=== PATIENT | female | born 1990 | race Caucasian/White ===

== ENCOUNTER → 2017-08-15 | Outpatient (CLI) | payer OTHER ==
[2017-08-15 11:59] LABS: BASO % 0.4 % (0.0-1.0); EOS # 0.2 10^3/uL (0.0-0.50); EOS % 3.1 % (0.0-3.0); HEMATOCRIT 41.9 % (36.0-47.0); HEMOGLOBIN 13.6 g/dl (12.0-16.0); IMMATURE GRANULOCYTE % 0.3 % (0-3.0); LYMPH # 1.8 10^3/uL (1.5-6.5); LYMPH % 23.5 % (24.0-44.0); MEAN CORPUSCULAR HEMOGLOBIN 28.5 pg (27.0-33.0); MEAN CORPUSCULAR HGB CONC 32.5 g/dl (32.0-36.5); MEAN CORPUSCULAR VOLUME 87.7 fl (80.0-96.0); MONO # 0.5 10^3/uL (0.0-0.8); MONO % 6.4 % (0.0-5.0); NEUTROPHILS # 5.1 10^3/uL (1.8-7.7); NEUTROPHILS % 66.3 % (36.0-66.0); PLATELET COUNT, AUTOMATED 351 10^3/uL (150-450); RED BLOOD COUNT 4.78 10^6/uL (4.00-5.40); RED CELL DISTRIBUTION WIDTH 13.2 % (11.5-14.5); WHITE BLOOD COUNT 7.7 10^3/uL (4.0-10.0)
[2017-08-15 12:20] LABS: ESTIMATED AVERAGE GLUCOSE 111 MG/DL (60-110); HEMOGLOBIN A1c 5.5 %
[2017-08-15 12:22] LABS: ALBUMIN 3.9 GM/DL (3.2-5.2); ALBUMIN/GLOBULIN RATIO 1.05 (1.00-1.93); ALKALINE PHOSPHATASE 64 U/L (45-117); ALT/SGPT 20 U/L (12-78); ANION GAP 8 MEQ/L (8-16); AST/SGOT 19 U/L (7-37); BILIRUBIN,TOTAL 0.3 MG/DL (0.2-1.0); BLOOD UREA NITROGEN 8 MG/DL (7-18); CALCIUM LEVEL 9.1 MG/DL (8.5-10.1); CARBON DIOXIDE LEVEL 27 MEQ/L (21-32); CHLORIDE LEVEL 106 MEQ/L (98-107); CHOLESTEROL LEVEL 166 MG/DL (<200); CHOLESTEROL RISK RATIO 2.813 (<5); CREATININE FOR GFR 0.65 MG/DL (0.55-1.30); FREE T4 1.09 NG/DL (0.76-1.46); GLOMERULAR FILTRATION RATE > 60.0 (>60); GLUCOSE, FASTING 83 MG/DL (70-100); HDL CHOLESTEROL 59 MG/DL (>40); NON-HDL-C 107 MG/DL; POTASSIUM SERUM 4.3 MEQ/L (3.5-5.1); SODIUM LEVEL 141 MEQ/L (136-145); TOTAL PROTEIN 7.6 GM/DL (6.4-8.2); TRIGLYCERIDES LEVEL 55 MG/DL (<150)
[2017-08-15 12:44] LABS: TOTAL 25(OH) VITAMIN D 22.7 NG/ML (30.0-100.0)
== END ==
LOC: M WUC 09:14
DX: E03.9 Hypothyroidism, unspecified (principal); E55.9 Vitamin D deficiency, unspecified; F32.9 Major depressive disorder, single episode, unspecified; Z79.899 Other long term (current) drug therapy
CPT/HCPCS: 84443

== ENCOUNTER 2020-10-28 12:00 | Outpatient (RCR) | payer OTHER | END 2020-11-02 | LOC: M OT 12:00 | PROVIDERS: ATTEND Orthopaedic Surgery | DX: M25.531 Pain in right wrist (principal); M25.532 Pain in left wrist ==

== ENCOUNTER 2020-11-19 14:21 | Outpatient (RCR) | payer OTHER ==
[2020-11-30] MEDS ORDERED: TRAZ-257 PO (20:43)
[2020-11-30] MEDS ORDERED: ESCI5SOL3 PO (20:43)
[2020-11-30] MEDS ORDERED: BUPR-69 PO (20:43)
[2020-11-30] MEDS ORDERED: HYDR-3363 PO (20:44)
== END 2020-12-02 ==
LOC: M OT 14:21
PROVIDERS: ATTEND Orthopaedic Surgery
DX: M25.531 Pain in right wrist (principal); M25.532 Pain in left wrist

== ENCOUNTER 2020-11-30 20:32 | Emergency (ER) | payer OTHER ==
[~2020-11-30] VITALS: Ht 154.9 cm; Wt 84.5 kg
[2020-11-30] MEDS ORDERED: TRAZ-257 PO (20:43)
[2020-11-30] MEDS ORDERED: BUPR-69 PO (20:43)
[2020-11-30] MEDS ORDERED: ESCI5SOL3 PO (20:43)
[2020-11-30] MEDS ORDERED: HYDR-3363 PO (20:44)
[2020-11-30] MEDS ORDERED: LIDOCAINE 4% CREAM 5GM (LMX4) TOP ONE (23:55)
[2020-11-30 23:59] VITALS: BP 133/84
--- NOTE | 2020-11-30 23:59 | REPVR ---
PROCEDURE INFORMATION: Exam: US Duplex Left Lower Extremity Veins, Limited Exam date and time: 11/30/2020 11:18 PM Age: 30 years old Clinical indication: Injury or trauma; Fall; Blunt trauma (contusions or hematomas); Left; Lower extremity, lower leg level; Other superficial vein; Injury date: 11/29/20; Additional info: R/O clot TECHNIQUE: Imaging protocol: Real-time Duplex ultrasound of the Left Lower Extremity with 2-D travis scale, color Doppler flow and spectral waveform analysis with image documentation. Limited exam focused on the left lower extremity veins. COMPARISON: No relevant prior studies available. FINDINGS: Left deep veins: Unremarkable. The common femoral, femoral, popliteal, posterior tibial and peroneal veins are patent without thrombus. Normal compressibility, augmentation response and Doppler waveforms. Left superficial veins: Subcutaneous varices in the calf.. Saphenofemoral junction is patent without thrombus. Soft tissues: Unremarkable. IMPRESSION: No sonographic evidence of deep vein thrombosis. Electronically signed by: Bran Can On 11/30/2020 23:58:09 PM
== END 2020-12-01 00:47 | disposition home or self-care (01) ==
LOC: M ED 20:32
DX: S80.12XA Contusion of left lower leg, initial encounter (principal); W01.0XXA Fall on same level from slipping, tripping and stumbling without subsequent striking against object, initial encounter; Y92.9 Unspecified place or not applicable; Y93.9 Activity, unspecified; Y99.9 Unspecified external cause status; Z88.8 Allergy status to other drugs, medicaments and biological substances

== ENCOUNTER → 2021-03-26 | Outpatient (REF) | payer OTHER ==
[~2021-03-26] MED LIST: BUPR-69 PO; ESCI5SOL3 PO; HYDR-3363 PO; TRAZ-257 PO
== END ==
LOC: M SFHCWAGY 13:18
PROVIDERS: ATTEND Advanced Practice Midwife
DX: Z12.4 Encounter for screening for malignant neoplasm of cervix (principal)

== ENCOUNTER 2021-11-24 23:14 | Emergency (ER) | payer OTHER ==
[~2021-11-24] VITALS: Ht 154.9 cm; Wt 73.4 kg
[2021-11-24 23:15] VITALS: BP 168/87
[2021-11-25] MEDS ORDERED: PHEN15CA6 (00:08)
[2021-11-25] MEDS ORDERED: ESCI5SOL3 (00:08)
[2021-11-25] MEDS ORDERED: BUSP1TAB PO (00:08)
[2021-11-25] MEDS ORDERED: BUPR-71 PO (00:08)
[2021-11-25] MEDS ORDERED: EUTH50TA PO (00:08)
[2021-11-25 00:48] LABS: HEMOGLOBIN 13.7 g/dl (12.0-15.5); MEAN CORPUSCULAR HEMOGLOBIN 29.5 pg (27.0-33.0); MEAN CORPUSCULAR HGB CONC 33.4 g/dl (32.0-36.5); MEAN CORPUSCULAR VOLUME 88.2 fl (80.0-96.0); PLATELET COUNT, AUTOMATED 283 10^3/uL (150-450); RED BLOOD COUNT 4.65 10^6/uL (4.00-5.40); WHITE BLOOD COUNT 9.3 10^3/uL (4.0-10.0)
[2021-11-25] MEDS ORDERED: ONDANSETRON 4MG ORAL DISINTEGRATING TAB PO ONE (00:55)
[2021-11-25] MEDS ORDERED: hydrOXYzine 50 MG TAB PO ONE (00:55)
[2021-11-25 00:56] LABS: HCG, SERUM QUALITATIVE NEGATIVE (NEGATIVE)
[2021-11-25 01:05] LABS: ALBUMIN 4.2 GM/DL (3.2-5.2); ALT/SGPT 20 U/L (12-78); BILIRUBIN,DIRECT 0.2 MG/DL (0.0-0.2); BILIRUBIN,TOTAL 0.3 MG/DL (0.2-1.0); BLOOD UREA NITROGEN 3 MG/DL (7-18); CALCIUM LEVEL 8.9 MG/DL (8.5-10.1); CARBON DIOXIDE LEVEL 21 MEQ/L (21-32); CHLORIDE LEVEL 105 MEQ/L (98-107); ETHYL ALCOHOL (ETHANOL) 0.003 % (0.000-0.010); GLOMERULAR FILTRATION RATE > 60.0 (>60); GLUCOSE, FASTING 99 MG/DL (70-100); POTASSIUM SERUM 3.6 MEQ/L (3.5-5.1); SALICYLATE LEVEL < 1.7 MG/DL (5.0-30.0); SODIUM LEVEL 137 MEQ/L (136-145); TOTAL PROTEIN 7.6 GM/DL (6.4-8.2)
[2021-11-25 01:15] LABS: AMPHETAMINES LEVEL URINE POSITIVE (NEGATIVE); BARBITURATES URINE NEGATIVE (NEGATIVE); BENZODIAZEPINES URINE NEGATIVE (NEGATIVE); CANNABINOIDS URINE POSITIVE (NEGATIVE); COCAINE METABOLITE URINE NEGATIVE (NEGATIVE); METHADONE URINE NEGATIVE (NEGATIVE); OPIATES URINE NEGATIVE (NEGATIVE); PHENCYCLIDINE URINE NEGATIVE (NEGATIVE)
[2021-11-26] MEDS ORDERED: LEXA1TAB2 PO (21:28)
== END 2021-11-25 02:09 | disposition left against medical advice (07) ==
LOC: M ED 23:14
DX: Z53.21 Procedure and treatment not carried out due to patient leaving prior to being seen by health care provider (principal)

== ENCOUNTER 2021-11-26 17:26 | Inpatient (IN) | payer OTHER ==
[~2021-11-26] VITALS: Ht 152.4 cm; Wt 73.4 kg
[~2021-11-26 17:26] MED LIST changes: +BUPR-71 PO; +BUSP1TAB PO; +ESCI5SOL3; +EUTH50TA PO; +PHEN15CA6
[2021-11-26] MEDS ORDERED: AMMONIA AROMATIC INHALANT STA (17:37)
[2021-11-26] MEDS ORDERED: ISOVUE-370 76% 100ML VIAL As Ordered ONE (18:11)
[2021-11-26 18:13] LABS: BASO # 0.1 10^3/uL (0.0-0.2); BASO % 0.3 % (0.0-1.0); EOS # 0.1 10^3/uL (0.0-0.5); EOS % 0.8 % (0.0-3.0); HEMOGLOBIN 14.4 g/dl (12.0-15.5); LYMPH # 1.8 10^3/uL (1.5-5.0); LYMPH % 10.6 % (24.0-44.0); MEAN CORPUSCULAR HEMOGLOBIN 29.5 pg (27.0-33.0); MEAN CORPUSCULAR HGB CONC 34.3 g/dl (32.0-36.5); MEAN CORPUSCULAR VOLUME 86.1 fl (80.0-96.0); MONO # 1.5 10^3/uL (0.0-0.8); MONO % 8.7 % (2.0-8.0); NEUTROPHILS # 13.7 10^3/uL (1.5-8.5); NEUTROPHILS % 79.1 % (36.0-66.0); PLATELET COUNT, AUTOMATED 406 10^3/uL (150-450); RED BLOOD COUNT 4.88 10^6/uL (4.00-5.40); WHITE BLOOD COUNT 17.3 10^3/uL (4.0-10.0)
[2021-11-26 18:34] LABS: CK-MB VALUE MASS 2.7 NG/ML (<3.6); MB/CK RELATIVE INDEX 0.78 (< OR =4)
[2021-11-26 19:02] LABS: ALBUMIN 4.2 GM/DL (3.2-5.2); ALT/SGPT 22 U/L (12-78); BILIRUBIN,DIRECT 0.2 MG/DL (0.0-0.2); BILIRUBIN,TOTAL 0.3 MG/DL (0.2-1.0); BLOOD UREA NITROGEN 5 MG/DL (7-18); CALCIUM LEVEL 8.8 MG/DL (8.5-10.1); CARBON DIOXIDE LEVEL 21 MEQ/L (21-32); CHLORIDE LEVEL 105 MEQ/L (98-107); CREATININE FOR GFR 0.89 MG/DL (0.55-1.30); ETHYL ALCOHOL (ETHANOL) 0.004 % (0.000-0.010); GLOMERULAR FILTRATION RATE > 60.0 (>60); GLUCOSE, FASTING 118 MG/DL (70-100); POTASSIUM SERUM 3.4 MEQ/L (3.5-5.1); SALICYLATE LEVEL 1.9 MG/DL (5.0-30.0); SODIUM LEVEL 137 MEQ/L (136-145); TOTAL PROTEIN 7.9 GM/DL (6.4-8.2)
[2021-11-26] MEDS ORDERED: hydrOXYzine 50 MG TAB PO ONE (19:05)
[2021-11-26] MEDS ORDERED: POTASSIUM CHLORIDE 10MEQ SR TABLET PO ONE (19:10)
[2021-11-26 20:21] LABS: ACETAMINOPHEN LEVEL < 2.0 UG/ML (0.0-30.0)
[2021-11-26] MEDS ORDERED: ONDANSETRON 4MG 2ML VIAL IV ONE (20:25)
[2021-11-26] MEDS ORDERED: ONDANSETRON 4MG 2ML VIAL As Ordered ONE (20:26)
[2021-11-26] MEDS ORDERED: ACETAMINOPHEN TAB 650MG DOSE (2X325MG) PO ONE (20:55)
[2021-11-26] MEDS ORDERED: LEXA1TAB2 PO (21:28)
[2021-11-26 21:29] LABS: AMPHETAMINES LEVEL URINE NEGATIVE (NEGATIVE); BARBITURATES URINE NEGATIVE (NEGATIVE); BENZODIAZEPINES URINE POSITIVE (NEGATIVE); CANNABINOIDS URINE POSITIVE (NEGATIVE); COCAINE METABOLITE URINE NEGATIVE (NEGATIVE); METHADONE URINE NEGATIVE (NEGATIVE); OPIATES URINE NEGATIVE (NEGATIVE); PHENCYCLIDINE URINE NEGATIVE (NEGATIVE)
[2021-11-26] MEDS ORDERED: HOME MED LIST COMPLETE! XX SCH (21:35)
[2021-11-26 21:38] LABS: RSV AMPLIFICATION NEGATIVE (NEGATIVE)
[2021-11-26] MEDS ORDERED: PILL CUTTER 1 EACH XX PRN (22:15)
[2021-11-27] MEDS ORDERED: traZODone 100 MG TAB PO ONE
[2021-11-27] MEDS: LEVOTHYROXINE 50MCG TABLET (0.05MG) PO SCH (06:00)
[2021-11-27] MEDS ORDERED: MIRALAX *UNIT DOSE* 17GM PACKET PO ONE (08:40)
[2021-11-27] MEDS ORDERED: ACETAMINOPHEN 500 MG TAB PO ONE (08:40)
[2021-11-27] MEDS: busPIRone 5 MG TAB PO SCH ×2 (10:37→13:35)
[2021-11-27] MEDS: buPROPion **SR TABLET** (ZYBAN) 150MG PO SCH ×2 (10:37→13:34)
[2021-11-27] MEDS: ESCITALOPRAM OXALATE 10 MG TAB (LEXAPRO) PO SCH (10:38)
[2021-11-27] MEDS ORDERED: IBUPROFEN 600MG TAB PO ONE (16:00)
[2021-11-27] MEDS: traZODone 100 MG TAB PO SCH (21:01)
[2021-11-28] MEDS: LEVOTHYROXINE 50MCG TABLET (0.05MG) PO SCH (06:17)
[2021-11-28] MEDS: busPIRone 5 MG TAB PO SCH ×2 (09:17→12:44)
[2021-11-28] MEDS: ESCITALOPRAM OXALATE 10 MG TAB (LEXAPRO) PO SCH (09:17)
[2021-11-28] MEDS: buPROPion **SR TABLET** (ZYBAN) 150MG PO SCH ×2 (09:17→14:40)
[2021-11-28] MEDS ORDERED: IBUPROFEN 400MG TAB PO ONE (09:50)
[2021-11-28] MEDS: IBUPROFEN 600MG TAB PO PRN (19:00)
[2021-11-28] MEDS ORDERED: ONDANSETRON 4MG ORAL DISINTEGRATING TAB PO ONE (20:30)
[2021-11-28] MEDS ORDERED: MOM 30ML SUSPENSION UDC PO ONE (21:05)
[2021-11-28] MEDS: traZODone 100 MG TAB PO SCH (22:52)
[2021-11-29] MEDS: LEVOTHYROXINE 50MCG TABLET (0.05MG) PO SCH (06:31)
[2021-11-29] MEDS: busPIRone 5 MG TAB PO SCH ×3 (08:53→22:50)
[2021-11-29] MEDS: buPROPion **SR TABLET** (ZYBAN) 150MG PO SCH ×3 (08:53→22:50)
[2021-11-29] MEDS: NICOTINE 21MG/24HR 1 EA TRANSDERMAL TD SCH (09:00)
[2021-11-29] MEDS: ESCITALOPRAM OXALATE 10 MG TAB (LEXAPRO) PO SCH (09:00)
[2021-11-29] MEDS: IBUPROFEN 600MG TAB PO PRN (09:25)
[2021-11-29] MEDS ORDERED: LORazepam 2 MG TAB PO PRN (15:10)
[2021-11-29] MEDS ORDERED: MAALOX 30 ML SUSP *UDC PO PRN (15:10)
[2021-11-29] MEDS ORDERED: MOM 30ML SUSPENSION UDC PO PRN (15:10)
[2021-11-29] MEDS: THIAMINE 100 MG TAB PO SCH (16:00)
[2021-11-29 17:38] VITALS: BP 135/90
[2021-11-29 18:51] VITALS: BP 135/90
[2021-11-29] MEDS: IBUPROFEN 400MG TAB PO PRN (21:23)
[2021-11-29] MEDS: traZODone 100 MG TAB PO SCH (22:46)
[2021-11-30 04:41] VITALS: BP 127/93
[2021-11-30] MEDS: LEVOTHYROXINE 50MCG TABLET (0.05MG) PO SCH (05:48)
[2021-11-30 06:50] VITALS: BP 127/93
[2021-11-30] MEDS: busPIRone 5 MG TAB PO SCH ×2 (08:40→14:18)
[2021-11-30] MEDS: THIAMINE 100 MG TAB PO SCH ×2 (08:40→21:52)
[2021-11-30] MEDS: FOLIC ACID 1 MG TAB PO SCH (08:40)
[2021-11-30] MEDS: MULTIVITAMINS/MINERALS THERAP 1 TAB PO SCH (08:40)
[2021-11-30] MEDS: buPROPion **SR TABLET** (ZYBAN) 150MG PO SCH ×2 (08:41→14:09)
[2021-11-30] MEDS: NICOTINE 21MG/24HR 1 EA TRANSDERMAL TD SCH (08:41)
[2021-11-30] MEDS: ESCITALOPRAM OXALATE 10 MG TAB (LEXAPRO) PO SCH (08:41)
[2021-11-30] MEDS ORDERED: ONDANSETRON 4MG ORAL DISINTEGRATING TAB PO PRN (09:50)
[2021-11-30] MEDS: IBUPROFEN 400MG TAB PO PRN ×2 (12:50→20:34)
[2021-11-30 12:54] VITALS: BP 140/82
[2021-11-30] MEDS ORDERED: busPIRone 5 MG TAB PO SCH (14:10)
[2021-11-30 19:07] VITALS: BP 147/89
[2021-11-30] MEDS: traZODone 100 MG TAB PO SCH (21:52)
[2021-11-30 22:35] VITALS: BP 160/94
[2021-11-30 22:42] VITALS: BP 160/94
[2021-12-01 06:00] VITALS: BP 112/64
[2021-12-01] MEDS: LEVOTHYROXINE 50MCG TABLET (0.05MG) PO SCH (06:38)
[2021-12-01] MEDS ORDERED: ONDANSETRON 4MG ORAL DISINTEGRATING TAB PO PRN (08:15)
[2021-12-01] MEDS: ONDANSETRON 4MG ORAL DISINTEGRATING TAB PO PRN (08:47)
[2021-12-01] MEDS: buPROPion **SR TABLET** (ZYBAN) 150MG PO SCH ×2 (09:50→13:02)
[2021-12-01] MEDS: busPIRone 5 MG TAB PO SCH ×2 (09:50→13:02)
[2021-12-01] MEDS: ESCITALOPRAM OXALATE 10 MG TAB (LEXAPRO) PO SCH (09:50)
[2021-12-01] MEDS: MULTIVITAMINS/MINERALS THERAP 1 TAB PO SCH (09:50)
[2021-12-01] MEDS: FOLIC ACID 1 MG TAB PO SCH (09:50)
[2021-12-01] MEDS: THIAMINE 100 MG TAB PO SCH ×2 (09:50→21:50)
[2021-12-01] MEDS: IBUPROFEN 400MG TAB PO PRN ×2 (09:52→16:59)
[2021-12-01 18:14] VITALS: BP 143/87
[2021-12-01] MEDS: traZODone 100 MG TAB PO SCH (21:50)
[2021-12-02] MEDS: LEVOTHYROXINE 50MCG TABLET (0.05MG) PO SCH (05:19)
[2021-12-02 06:58] VITALS: BP 111/62
[2021-12-02] MEDS: FOLIC ACID 1 MG TAB PO SCH (09:25)
[2021-12-02] MEDS: THIAMINE 100 MG TAB PO SCH (09:25)
[2021-12-02] MEDS: buPROPion **SR TABLET** (ZYBAN) 150MG PO SCH ×2 (09:25→12:26)
[2021-12-02] MEDS: busPIRone 5 MG TAB PO SCH ×2 (09:26→12:25)
[2021-12-02] MEDS: ESCITALOPRAM OXALATE 10 MG TAB (LEXAPRO) PO SCH (09:26)
[2021-12-02] MEDS: MULTIVITAMINS/MINERALS THERAP 1 TAB PO SCH (09:26)
[2021-12-02] MEDS: ONDANSETRON 4MG ORAL DISINTEGRATING TAB PO PRN ×2 (09:44→16:45)
[2021-12-02] MEDS: IBUPROFEN 400MG TAB PO PRN ×2 (11:04→17:55)
[2021-12-02] MEDS ORDERED: ACETAMINOPHEN TAB 650MG DOSE (2X325MG) PO PRN (17:30)
[2021-12-02] MEDS: hydrOXYzine 50 MG TAB PO PRN (17:54)
[2021-12-02 17:59] LABS: HEMATOCRIT 38.5 % (36.0-47.0); HEMOGLOBIN 13.3 g/dl (12.0-15.5); MEAN CORPUSCULAR HEMOGLOBIN 30.4 pg (27.0-33.0); MEAN CORPUSCULAR HGB CONC 34.5 g/dl (32.0-36.5); MEAN CORPUSCULAR VOLUME 88.1 fl (80.0-96.0); PLATELET COUNT, AUTOMATED 348 10^3/uL (150-450); RED BLOOD COUNT 4.37 10^6/uL (4.00-5.40); WHITE BLOOD COUNT 10.9 10^3/uL (4.0-10.0)
[2021-12-02 18:20] LABS: ALBUMIN 4.3 GM/DL (3.2-5.2); ALT/SGPT 23 U/L (12-78); BILIRUBIN,TOTAL 0.3 MG/DL (0.2-1.0); BLOOD UREA NITROGEN 9 MG/DL (7-18); CALCIUM LEVEL 9.4 MG/DL (8.5-10.1); CARBON DIOXIDE LEVEL 24 MEQ/L (21-32); CHLORIDE LEVEL 109 MEQ/L (98-107); CREATININE FOR GFR 0.81 MG/DL (0.55-1.30); GLOMERULAR FILTRATION RATE > 60.0 (>60); GLUCOSE, FASTING 96 MG/DL (70-100); POTASSIUM SERUM 3.7 MEQ/L (3.5-5.1); SODIUM LEVEL 140 MEQ/L (136-145); TOTAL PROTEIN 7.6 GM/DL (6.4-8.2)
[2021-12-02 18:21] VITALS: BP 132/78
[2021-12-02] MEDS: traZODone 100 MG TAB PO SCH (21:57)
[2021-12-03] MEDS: LEVOTHYROXINE 50MCG TABLET (0.05MG) PO SCH (05:31)
[2021-12-03 06:34] VITALS: BP 116/67
[2021-12-03] MEDS: MULTIVITAMINS/MINERALS THERAP 1 TAB PO SCH (09:00)
[2021-12-03] MEDS: FOLIC ACID 1 MG TAB PO SCH (09:00)
[2021-12-03] MEDS: buPROPion **SR TABLET** (ZYBAN) 150MG PO SCH ×2 (09:07→11:53)
[2021-12-03] MEDS: ESCITALOPRAM OXALATE 10 MG TAB (LEXAPRO) PO SCH (09:08)
[2021-12-03] MEDS: busPIRone 5 MG TAB PO SCH ×2 (09:08→11:54)
[2021-12-03] MEDS: IBUPROFEN 400MG TAB PO PRN (10:40)
[2021-12-03] MEDS ORDERED: HYDR50TA70 PO (13:36)
[2021-12-03] MEDS ORDERED: BUPR15TASR PO (13:36)
[2021-12-03] MEDS ORDERED: TRAZ-257 PO (13:36)
[2021-12-03] MEDS ORDERED: LEXA1TAB PO (13:36)
[2021-12-03] MEDS ORDERED: BUSP5TA PO (13:36)
[2021-12-03] MEDS ORDERED: LEVO50TA5 PO (13:36)
[2021-12-03] MEDS ORDERED: ONDA4TAB6 PO (13:38)
[2021-12-03] MEDS: hydrOXYzine 50 MG TAB PO PRN (17:11)
[2021-12-03 18:16] VITALS: BP 124/84
== END 2021-12-03 18:40 | disposition home or self-care (01) | DRG 754 ==
LOC: M ED 17:26 → M ED INP 11-29 15:08 → M PSY 11-29 17:44
PROVIDERS: ADMIT Psychiatry & Neurology Psychiatry; ATTEND Psychiatry & Neurology Psychiatry
DX: F32.A Depression, unspecified (principal); R45.851 Suicidal ideations; F41.1 Generalized anxiety disorder; F41.0 Panic disorder [episodic paroxysmal anxiety]; F12.90 Cannabis use, unspecified, uncomplicated; Z88.2 Allergy status to sulfonamides; Z88.8 Allergy status to other drugs, medicaments and biological substances; Z79.899 Other long term (current) drug therapy; G47.00 Insomnia, unspecified; Z62.810 Personal history of physical and sexual abuse in childhood; M79.641 Pain in right hand; F32.9 Major depressive disorder, single episode, unspecified

== ENCOUNTER 2021-12-11 22:26 | Inpatient (IN) | payer OTHER ==
[~2021-12-11] VITALS: Ht 154.9 cm; Wt 71.2 kg
[~2021-12-11 22:26] MED LIST changes: +BUPR15TASR PO; +BUSP5TA PO; +HYDR50TA70 PO; +LEVO50TA5 PO; +LEXA1TAB PO; +LEXA1TAB2 PO; +ONDA4TAB6 PO
[2021-12-11 23:11] LABS: HEMATOCRIT 39.6 % (36.0-47.0); HEMOGLOBIN 13.3 g/dl (12.0-15.5); MEAN CORPUSCULAR HEMOGLOBIN 29.9 pg (27.0-33.0); MEAN CORPUSCULAR HGB CONC 33.6 g/dl (32.0-36.5); PLATELET COUNT, AUTOMATED 444 10^3/uL (150-450); RED BLOOD COUNT 4.45 10^6/uL (4.00-5.40); WHITE BLOOD COUNT 16.2 10^3/uL (4.0-10.0)
[2021-12-11] MEDS ORDERED: ACETAMINOPHEN 325 MG TAB PO ONE (23:35)
[2021-12-11 23:51] LABS: AMPHETAMINES LEVEL URINE NEGATIVE (NEGATIVE); BARBITURATES URINE NEGATIVE (NEGATIVE); BENZODIAZEPINES URINE NEGATIVE (NEGATIVE); CANNABINOIDS URINE POSITIVE (NEGATIVE); COCAINE METABOLITE URINE NEGATIVE (NEGATIVE); METHADONE URINE NEGATIVE (NEGATIVE); OPIATES URINE NEGATIVE (NEGATIVE); PHENCYCLIDINE URINE NEGATIVE (NEGATIVE)
[2021-12-11 23:52] LABS: ACETAMINOPHEN LEVEL < 2.0 UG/ML (10.0-30.0); ALBUMIN 4.4 GM/DL (3.2-5.2); ALT/SGPT 23 U/L (12-78); BILIRUBIN,DIRECT 0.1 MG/DL (0.0-0.2); BILIRUBIN,TOTAL 0.4 MG/DL (0.2-1.0); BLOOD UREA NITROGEN 5 MG/DL (7-18); CALCIUM LEVEL 9.2 MG/DL (8.5-10.1); CARBON DIOXIDE LEVEL 23 MEQ/L (21-32); CHLORIDE LEVEL 106 MEQ/L (98-107); CREATININE FOR GFR 0.84 MG/DL (0.55-1.30); ETHYL ALCOHOL (ETHANOL) 0.003 % (0.000-0.010); GLOMERULAR FILTRATION RATE > 60.0 (>60); GLUCOSE, FASTING 102 MG/DL (70-100); SODIUM LEVEL 139 MEQ/L (136-145); TOTAL PROTEIN 7.9 GM/DL (6.4-8.2)
[2021-12-12] MEDS: LEVOTHYROXINE 50MCG TABLET (0.05MG) PO SCH (06:00)
[2021-12-12] MEDS ORDERED: LORazepam 1 MG TAB PO STA (10:30)
[2021-12-12] MEDS ORDERED: HYDR50TA70 PO (10:42)
[2021-12-12] MEDS ORDERED: ONDA4TAB6 PO (10:42)
[2021-12-12] MEDS ORDERED: HOME MED LIST COMPLETE! XX SCH (10:45)
[2021-12-12] MEDS ORDERED: traZODone 100 MG TAB PO ONE (11:20)
[2021-12-12] MEDS ORDERED: NICOTINE 21MG/24HR 1 EA TRANSDERMAL TD SCH (15:10)
[2021-12-12] MEDS ORDERED: NICOTINE 21MG/24HR 1 EA TRANSDERMAL TD ONE (15:10)
[2021-12-12] MEDS: buPROPion **SR TABLET** (ZYBAN) 150MG PO SCH (15:14)
[2021-12-12] MEDS ORDERED: buPROPion 75 MG TAB PO SCH (21:00)
[2021-12-12] MEDS ORDERED: traZODone 100 MG TAB PO SCH (21:00)
[2021-12-12] MEDS ORDERED: hydrOXYzine 50 MG TAB PO PRN (21:25)
[2021-12-12] MEDS ORDERED: PILL CUTTER 1 EACH XX PRN (21:40)
[2021-12-12] MEDS ORDERED: ONDANSETRON 4MG ORAL DISINTEGRATING TAB PO PRN (21:45)
[2021-12-13] MEDS: LEVOTHYROXINE 50MCG TABLET (0.05MG) PO SCH (06:45)
[2021-12-13] MEDS: buPROPion **SR TABLET** (ZYBAN) 150MG PO SCH ×2 (08:25→12:13)
[2021-12-13] MEDS: busPIRone 5 MG TAB PO SCH ×2 (08:25→12:14)
[2021-12-13] MEDS ORDERED: ESCITALOPRAM OXALATE 10 MG TAB (LEXAPRO) PO SCH (09:00)
[2021-12-13] MEDS ORDERED: NICOTINE 21MG/24HR 1 EA TRANSDERMAL TD SCH (09:00)
[2021-12-13] MEDS ORDERED: traZODone 50 MG TAB PO PRN (14:00)
[2021-12-13] MEDS ORDERED: MAALOX 30 ML SUSP *UDC PO PRN (14:00)
[2021-12-13] MEDS ORDERED: MOM 30ML SUSPENSION UDC PO PRN (14:00)
[2021-12-13] MEDS ORDERED: ACETAMINOPHEN TAB 650MG DOSE (2X325MG) PO PRN (14:00)
[2021-12-13] MEDS: hydrOXYzine 50 MG TAB PO PRN (15:51)
[2021-12-13] MEDS: traZODone 100 MG TAB PO SCH (20:37)
[2021-12-14] MEDS: LEVOTHYROXINE 50MCG TABLET (0.05MG) PO SCH (05:25)
[2021-12-14 06:37] VITALS: BP 146/90
[2021-12-14] MEDS: NICOTINE 21MG/24HR 1 EA TRANSDERMAL TD SCH (08:36)
[2021-12-14] MEDS: busPIRone 5 MG TAB PO SCH ×2 (08:37→12:07)
[2021-12-14] MEDS: ONDANSETRON 4MG ORAL DISINTEGRATING TAB PO PRN (08:37)
[2021-12-14] MEDS: LORazepam 1 MG TAB PO PRN (08:38)
[2021-12-14] MEDS: hydrOXYzine 50 MG TAB PO PRN (10:18)
[2021-12-14] MEDS ORDERED: traMADol 50 MG TAB PO PRN (12:05)
[2021-12-14] MEDS: buPROPion **XL** TABLET 150MG (WELLBUTRIN XL) PO SCH (14:01)
[2021-12-14] MEDS: ESCITALOPRAM OXALATE 10 MG TAB (LEXAPRO) PO SCH (14:01)
[2021-12-14 18:17] VITALS: BP 128/72
[2021-12-14] MEDS: traZODone 100 MG TAB PO SCH (20:42)
[2021-12-14] MEDS: ACETAMINOPHEN TAB 650MG DOSE (2X325MG) PO PRN (20:43)
[2021-12-15] MEDS: LEVOTHYROXINE 50MCG TABLET (0.05MG) PO SCH (05:41)
[2021-12-15 06:47] VITALS: BP 143/80
[2021-12-15] MEDS: busPIRone 5 MG TAB PO SCH ×2 (08:54→12:03)
[2021-12-15] MEDS: NICOTINE 21MG/24HR 1 EA TRANSDERMAL TD SCH (09:22)
[2021-12-15] MEDS: buPROPion **XL** TABLET 150MG (WELLBUTRIN XL) PO SCH (09:22)
[2021-12-15] MEDS: ESCITALOPRAM OXALATE 10 MG TAB (LEXAPRO) PO SCH (09:22)
[2021-12-15] MEDS: ACETAMINOPHEN TAB 650MG DOSE (2X325MG) PO PRN (10:00)
[2021-12-15] MEDS: IBUPROFEN 600MG TAB PO PRN (14:12)
[2021-12-15 19:18] VITALS: BP 129/64
[2021-12-15] MEDS: traZODone 100 MG TAB PO SCH (20:11)
[2021-12-16] MEDS: LEVOTHYROXINE 50MCG TABLET (0.05MG) PO SCH (05:49)
[2021-12-16 06:37] VITALS: BP 122/58
[2021-12-16] MEDS: buPROPion **XL** TABLET 150MG (WELLBUTRIN XL) PO SCH (08:20)
[2021-12-16] MEDS: busPIRone 5 MG TAB PO SCH ×2 (08:20→12:12)
[2021-12-16] MEDS: ESCITALOPRAM OXALATE 10 MG TAB (LEXAPRO) PO SCH (08:20)
[2021-12-16] MEDS: NICOTINE 21MG/24HR 1 EA TRANSDERMAL TD SCH (08:21)
[2021-12-16] MEDS: ACETAMINOPHEN TAB 650MG DOSE (2X325MG) PO PRN ×2 (09:06→15:47)
[2021-12-16] MEDS: IBUPROFEN 600MG TAB PO PRN (19:21)
[2021-12-16] MEDS ORDERED: traZODone 100 MG TAB PO SCH (21:00)
[2021-12-17] MEDS: LEVOTHYROXINE 50MCG TABLET (0.05MG) PO SCH (05:52)
[2021-12-17] MEDS: ONDANSETRON 4MG ORAL DISINTEGRATING TAB PO PRN (05:58)
[2021-12-17] MEDS: LORazepam 1 MG TAB PO PRN (06:25)
[2021-12-17 06:32] VITALS: BP 144/87
[2021-12-17] MEDS: ESCITALOPRAM OXALATE 10 MG TAB (LEXAPRO) PO SCH (08:00)
[2021-12-17] MEDS: busPIRone 5 MG TAB PO SCH (08:01)
[2021-12-17] MEDS: buPROPion **XL** TABLET 150MG (WELLBUTRIN XL) PO SCH (08:01)
[2021-12-17] MEDS: hydrOXYzine 50 MG TAB PO PRN (08:01)
[2021-12-17] MEDS: NICOTINE 21MG/24HR 1 EA TRANSDERMAL TD SCH (08:01)
[2021-12-17] MEDS ORDERED: TRAZ-257 PO (10:27)
[2021-12-17] MEDS ORDERED: LEXA1TAB PO (10:27)
[2021-12-17] MEDS ORDERED: BUPR150T12 PO (10:27)
[2021-12-17] MEDS ORDERED: BUSP5TA PO (10:27)
== END 2021-12-17 11:40 | disposition home or self-care (01) | DRG 753 ==
LOC: M ED 22:26 → M ED INP 12-13 14:00 → M PSY 12-13 16:55
PROVIDERS: ADMIT Student in an Organized Health Care Education/Training Program; ATTEND Psychiatry & Neurology Psychiatry
DX: F39 Unspecified mood [affective] disorder (principal); R45.851 Suicidal ideations; F31.9 Bipolar disorder, unspecified; F41.1 Generalized anxiety disorder; F32.9 Major depressive disorder, single episode, unspecified; F43.0 Acute stress reaction; Z79.899 Other long term (current) drug therapy; Z88.2 Allergy status to sulfonamides; Z88.8 Allergy status to other drugs, medicaments and biological substances; G47.00 Insomnia, unspecified; E03.9 Hypothyroidism, unspecified; F12.90 Cannabis use, unspecified, uncomplicated; F17.200 Nicotine dependence, unspecified, uncomplicated; G56.03 Carpal tunnel syndrome, bilateral upper limbs

== ENCOUNTER → 2022-01-11 | Outpatient (CLI) | payer OTHER ==
[~2022-01-11] VITALS: Ht 152.4 cm; Wt 71.2 kg
[~2022-01-11] MED LIST changes: +BUPR150T12 PO
[2022-01-11 14:35] VITALS: BP 145/89
== END ==
LOC: M PAL 14:27
PROVIDERS: ATTEND Nurse Practitioner Adult Health
DX: M54.2 Cervicalgia (principal); M25.511 Pain in right shoulder; M25.512 Pain in left shoulder; M54.50 Low back pain, unspecified; M54.6 Pain in thoracic spine; S19.9XXS Unspecified injury of neck, sequela; S49.91XS Unspecified injury of right shoulder and upper arm, sequela; S49.92XS Unspecified injury of left shoulder and upper arm, sequela; S39.92XS Unspecified injury of lower back, sequela; S29.9XXS Unspecified injury of thorax, sequela; F32.A Depression, unspecified; F41.9 Anxiety disorder, unspecified; Z51.5 Encounter for palliative care; Z88.2 Allergy status to sulfonamides; Z88.8 Allergy status to other drugs, medicaments and biological substances; Z88.1 Allergy status to other antibiotic agents; Z79.899 Other long term (current) drug therapy

== ENCOUNTER → 2022-01-21 | Outpatient (CLI) | payer OTHER | LOC: M PLARAD 10:12 | PROVIDERS: ATTEND Nurse Practitioner Family | DX: M54.2 Cervicalgia (principal) ==

== ENCOUNTER 2022-04-05 10:58 | Inpatient (IN) | payer OTHER ==
[~2022-04-05] VITALS: Ht 154.9 cm; Wt 63.4 kg
[2022-04-05] MEDS ORDERED: DIVA250T67 PO (11:33)
[2022-04-05 14:08] LABS: HEMATOCRIT 41.8 % (36.0-47.0); HEMOGLOBIN 13.7 g/dl (12.0-15.5); MEAN CORPUSCULAR HGB CONC 32.8 g/dl (32.0-36.5); MEAN CORPUSCULAR VOLUME 88.4 fl (80.0-96.0); PLATELET COUNT, AUTOMATED 468 10^3/uL (150-450); RED BLOOD COUNT 4.73 10^6/uL (4.00-5.40); WHITE BLOOD COUNT 12.7 10^3/uL (4.0-10.0)
[2022-04-05] MEDS ORDERED: NICOTINE 21MG/24HR 1 EA TRANSDERMAL TD ONE (14:35)
[2022-04-05] MEDS ORDERED: ONDANSETRON 4MG ORAL DISINTEGRATING TAB PO ONE (14:35)
[2022-04-05 14:39] LABS: RSV AMPLIFICATION NEGATIVE (NEGATIVE)
[2022-04-05 14:46] LABS: AMPHETAMINES LEVEL URINE NEGATIVE (NEGATIVE); BARBITURATES URINE NEGATIVE (NEGATIVE); BENZODIAZEPINES URINE NEGATIVE (NEGATIVE); CANNABINOIDS URINE POSITIVE (NEGATIVE); COCAINE METABOLITE URINE NEGATIVE (NEGATIVE); METHADONE URINE NEGATIVE (NEGATIVE); OPIATES URINE NEGATIVE (NEGATIVE); PHENCYCLIDINE URINE NEGATIVE (NEGATIVE)
[2022-04-05 14:52] LABS: HCG, SERUM QUALITATIVE NEGATIVE (NEGATIVE)
[2022-04-05 15:17] LABS: ACETAMINOPHEN LEVEL < 2.0 UG/ML (10.0-30.0); ALT/SGPT 17 U/L (12-78); BILIRUBIN,DIRECT 0.1 MG/DL (0.0-0.2); BILIRUBIN,TOTAL 0.2 MG/DL (0.2-1.0); BLOOD UREA NITROGEN 8 MG/DL (7-18); CALCIUM LEVEL 9.8 MG/DL (8.5-10.1); CARBON DIOXIDE LEVEL 26 MEQ/L (21-32); CHLORIDE LEVEL 104 MEQ/L (98-107); CREATININE FOR GFR 0.66 MG/DL (0.55-1.30); ETHYL ALCOHOL (ETHANOL) 0.007 % (0.000-0.010); GLOMERULAR FILTRATION RATE > 60.0 (>60); GLUCOSE, FASTING 98 MG/DL (70-100); POTASSIUM SERUM 4.1 MEQ/L (3.5-5.1); SALICYLATE LEVEL 3.2 MG/DL (5.0-30.0); SODIUM LEVEL 139 MEQ/L (136-145); THYROID STIMULATING HORMONE 0.953 uIU/ML (0.358-3.740); TOTAL PROTEIN 8.1 GM/DL (6.4-8.2)
[2022-04-05] MEDS ORDERED: hydrOXYzine 50 MG TAB PO ONE (16:50)
[2022-04-05] MEDS ORDERED: BUSP5TA PO (18:13)
[2022-04-05] MEDS ORDERED: LEXA1TAB PO (18:13)
[2022-04-05] MEDS ORDERED: TRAZ-252 PO (18:13)
[2022-04-05] MEDS ORDERED: APAP325T4 PO (18:16)
[2022-04-05] MEDS ORDERED: PREN1CHW6 PO (18:16)
[2022-04-05] MEDS ORDERED: HOME MED LIST COMPLETE! XX SCH (18:20)
[2022-04-05] MEDS ORDERED: MAALOX 30 ML SUSP *UDC PO PRN (20:30)
[2022-04-05] MEDS ORDERED: MOM 30ML SUSPENSION UDC PO PRN (20:30)
[2022-04-05] MEDS ORDERED: hydrOXYzine 50 MG TAB PO PRN (20:30)
[2022-04-05] MEDS: busPIRone 5 MG TAB PO SCH (21:00)
[2022-04-05] MEDS: traZODone 50 MG TAB PO PRN (22:40)
[2022-04-05 23:56] VITALS: BP 107/58
[2022-04-06] MEDS: LEVOTHYROXINE 50MCG TABLET (0.05MG) PO SCH (05:38)
[2022-04-06 06:32] VITALS: BP 131/65
[2022-04-06] MEDS ORDERED: ESCITALOPRAM OXALATE 10 MG TAB (LEXAPRO) PO SCH (09:00)
[2022-04-06] MEDS: PRENATAL VITAMINS CHEWABLE TABLET PO SCH (09:01)
[2022-04-06] MEDS: DIVALPROEX 250 MG TAB PO SCH (09:01)
[2022-04-06] MEDS: busPIRone 5 MG TAB PO SCH ×2 (09:01→21:18)
[2022-04-06] MEDS: NICOTINE 21MG/24HR 1 EA TRANSDERMAL TD SCH (10:38)
[2022-04-06] MEDS: buPROPion **XL** TABLET 150MG (WELLBUTRIN XL) PO SCH (11:22)
[2022-04-06] MEDS: ONDANSETRON 4MG TAB PO PRN (14:12)
[2022-04-06 18:15] VITALS: BP 110/73
[2022-04-06] MEDS: ACETAMINOPHEN TAB 650MG DOSE (2X325MG) PO PRN (18:38)
[2022-04-06] MEDS: traZODone 50 MG TAB PO PRN (21:19)
[2022-04-07] MEDS: LEVOTHYROXINE 50MCG TABLET (0.05MG) PO SCH (05:55)
[2022-04-07 06:30] VITALS: BP 111/68
[2022-04-07] MEDS: buPROPion **XL** TABLET 150MG (WELLBUTRIN XL) PO SCH (09:29)
[2022-04-07] MEDS: busPIRone 5 MG TAB PO SCH ×2 (09:29→22:07)
[2022-04-07] MEDS: PRENATAL VITAMINS CHEWABLE TABLET PO SCH (09:29)
[2022-04-07] MEDS: DIVALPROEX 250 MG TAB PO SCH (09:30)
[2022-04-07] MEDS: NICOTINE 21MG/24HR 1 EA TRANSDERMAL TD SCH (09:30)
[2022-04-07 12:05] LABS: HEMATOCRIT 40.6 % (36.0-47.0); HEMOGLOBIN 13.4 g/dl (12.0-15.5); MEAN CORPUSCULAR HEMOGLOBIN 29.5 pg (27.0-33.0); MEAN CORPUSCULAR VOLUME 89.4 fl (80.0-96.0); PLATELET COUNT, AUTOMATED 440 10^3/uL (150-450); RED BLOOD COUNT 4.54 10^6/uL (4.00-5.40)
[2022-04-07 12:52] LABS: ALBUMIN 3.6 GM/DL (3.2-5.2); ALT/SGPT 17 U/L (12-78); BILIRUBIN,TOTAL 0.2 MG/DL (0.2-1.0); BLOOD UREA NITROGEN 8 MG/DL (7-18); CALCIUM LEVEL 9.8 MG/DL (8.5-10.1); CARBON DIOXIDE LEVEL 26 MEQ/L (21-32); CHLORIDE LEVEL 106 MEQ/L (98-107); CREATININE FOR GFR 0.66 MG/DL (0.55-1.30); GLOMERULAR FILTRATION RATE > 60.0 (>60); GLUCOSE, FASTING 97 MG/DL (70-100); POTASSIUM SERUM 4.1 MEQ/L (3.5-5.1); SODIUM LEVEL 137 MEQ/L (136-145); TOTAL PROTEIN 7.5 GM/DL (6.4-8.2)
[2022-04-07] MEDS: ACETAMINOPHEN TAB 650MG DOSE (2X325MG) PO PRN (18:31)
[2022-04-07 19:25] VITALS: BP 121/82
[2022-04-07] MEDS: traZODone 50 MG TAB PO PRN (22:08)
[2022-04-08] MEDS: LEVOTHYROXINE 50MCG TABLET (0.05MG) PO SCH (05:59)
[2022-04-08 06:09] VITALS: BP 132/74
[2022-04-08] MEDS: buPROPion **XL** TABLET 150MG (WELLBUTRIN XL) PO SCH (08:50)
[2022-04-08] MEDS: busPIRone 5 MG TAB PO SCH ×2 (08:50→21:34)
[2022-04-08] MEDS: NICOTINE 21MG/24HR 1 EA TRANSDERMAL TD SCH (08:50)
[2022-04-08] MEDS: PRENATAL VITAMINS CHEWABLE TABLET PO SCH (08:50)
[2022-04-08] MEDS: DIVALPROEX 250 MG TAB PO SCH (08:50)
[2022-04-08 18:31] VITALS: BP 124/80
[2022-04-08] MEDS: traZODone 50 MG TAB PO PRN (21:34)
[2022-04-08] MEDS: ACETAMINOPHEN TAB 650MG DOSE (2X325MG) PO PRN (21:35)
[2022-04-09] MEDS: LEVOTHYROXINE 50MCG TABLET (0.05MG) PO SCH (05:45)
[2022-04-09 06:06] VITALS: BP 107/61
[2022-04-09] MEDS: DIVALPROEX 250 MG TAB PO SCH (08:33)
[2022-04-09] MEDS: NICOTINE 21MG/24HR 1 EA TRANSDERMAL TD SCH (08:33)
[2022-04-09] MEDS: ONDANSETRON 4MG TAB PO PRN (08:33)
[2022-04-09] MEDS: PRENATAL VITAMINS CHEWABLE TABLET PO SCH (08:33)
[2022-04-09] MEDS: busPIRone 5 MG TAB PO SCH ×2 (08:33→21:29)
[2022-04-09] MEDS: buPROPion **XL** TABLET 150MG (WELLBUTRIN XL) PO SCH (08:33)
[2022-04-09 18:16] VITALS: BP 111/71
[2022-04-09] MEDS: traZODone 50 MG TAB PO PRN (21:29)
[2022-04-09] MEDS: ACETAMINOPHEN TAB 650MG DOSE (2X325MG) PO PRN (21:30)
[2022-04-10] MEDS: LEVOTHYROXINE 50MCG TABLET (0.05MG) PO SCH (05:31)
[2022-04-10 05:56] VITALS: BP 110/65
[2022-04-10] MEDS: buPROPion **XL** TABLET 150MG (WELLBUTRIN XL) PO SCH (08:49)
[2022-04-10] MEDS: busPIRone 5 MG TAB PO SCH ×2 (08:49→21:36)
[2022-04-10] MEDS: NICOTINE 21MG/24HR 1 EA TRANSDERMAL TD SCH (08:50)
[2022-04-10] MEDS: DIVALPROEX 125 MG TAB PO SCH (08:50)
[2022-04-10] MEDS: PRENATAL VITAMINS CHEWABLE TABLET PO SCH (08:50)
[2022-04-10 18:14] VITALS: BP 99/54
[2022-04-10] MEDS: traZODone 50 MG TAB PO PRN (21:35)
[2022-04-11] MEDS: LEVOTHYROXINE 50MCG TABLET (0.05MG) PO SCH (05:37)
[2022-04-11 06:13] VITALS: BP 95/55
[2022-04-11] MEDS: NICOTINE 21MG/24HR 1 EA TRANSDERMAL TD SCH (08:15)
[2022-04-11] MEDS: PRENATAL VITAMINS CHEWABLE TABLET PO SCH (08:16)
[2022-04-11] MEDS: buPROPion **XL** TABLET 150MG (WELLBUTRIN XL) PO SCH (08:16)
[2022-04-11] MEDS: DIVALPROEX 125 MG TAB PO SCH (08:17)
[2022-04-11] MEDS: busPIRone 5 MG TAB PO SCH (08:17)
[2022-04-11] MEDS ORDERED: HYDR50TA70 PO (10:35)
[2022-04-11] MEDS ORDERED: BUPR150T12 PO (10:35)
[2022-04-11] MEDS ORDERED: BUSP5TA PO (10:35)
[2022-04-11] MEDS ORDERED: DEPA1TAB PO (10:35)
== END 2022-04-11 12:01 | disposition home or self-care (01) | DRG 753 ==
LOC: M ED 10:58 → M ED INP 20:30 → M PSY 21:49
PROVIDERS: ADMIT Psychiatry & Neurology Psychiatry; ATTEND Psychiatry & Neurology Psychiatry
DX: F31.89 Other bipolar disorder (principal); R45.851 Suicidal ideations; F43.10 Post-traumatic stress disorder, unspecified; Z88.8 Allergy status to other drugs, medicaments and biological substances; Z88.2 Allergy status to sulfonamides; Z79.899 Other long term (current) drug therapy; F17.200 Nicotine dependence, unspecified, uncomplicated; F41.1 Generalized anxiety disorder; E03.9 Hypothyroidism, unspecified; F12.90 Cannabis use, unspecified, uncomplicated

== ENCOUNTER 2022-06-15 13:08 | Inpatient (IN) | payer MEDICAID, OTHER ==
[~2022-06-15] VITALS: Ht 152.4 cm; Wt 59.4 kg
[~2022-06-15 13:08] MED LIST changes: +APAP325T4 PO; +DEPA1TAB PO; +DIVA250T67 PO; +PREN1CHW6 PO; +TRAZ-252 PO
[2022-06-15] MEDS ORDERED: NS 1,000 ML IV ONE ×3 (13:30→15:45)
[2022-06-15 14:19] LABS: MEAN CORPUSCULAR HEMOGLOBIN 29.4 pg (27.0-33.0); MEAN CORPUSCULAR HGB CONC 32.6 g/dl (32.0-36.5); MEAN CORPUSCULAR VOLUME 90.1 fl (80.0-96.0); PLATELET COUNT, AUTOMATED 398 10^3/uL (150-450); RED BLOOD COUNT 4.77 10^6/uL (4.00-5.40); WHITE BLOOD COUNT 13.2 10^3/uL (4.0-10.0)
[2022-06-15 14:38] LABS: ETHYL ALCOHOL (ETHANOL) 0.003 % (0.000-0.010)
[2022-06-15 14:39] LABS: BILIRUBIN,DIRECT < 0.1 MG/DL (<0.4); SALICYLATE LEVEL < 3.0 MG/DL (<30)
[2022-06-15 14:40] LABS: ACETAMINOPHEN LEVEL < 2.0 UG/ML (10.0-20.0)
[2022-06-15 14:46] LABS: ALBUMIN 4.1 G/DL (3.2-5.2); ALKALINE PHOSPHATASE 60 U/L (46-116); ALT/SGPT 12 U/L (7.0-40); AST/SGOT 21 U/L (<34); BILIRUBIN,TOTAL 0.3 MG/DL (0.3-1.2); BLOOD UREA NITROGEN < 5 MG/DL (9-23); CALCIUM LEVEL 9.6 MG/DL (8.5-10.1); CARBON DIOXIDE LEVEL 23 MMOL/L (20-31); CHLORIDE LEVEL 104 MMOL/L (98-107); CREATININE FOR GFR 0.59 MG/DL (0.55-1.30); GLOMERULAR FILTRATION RATE > 60.0 (>60); GLUCOSE, FASTING 92 MG/DL (60-100); POTASSIUM SERUM 4.6 MMOL/L (3.5-5.1); SODIUM LEVEL 137 MMOL/L (136-145); THYROID STIMULATING HORMONE 2.934 uIU/ML (0.55-4.78); TOTAL PROTEIN 7.4 G/DL (5.7-8.2)
[2022-06-15 14:49] LABS: HCG, SERUM QUALITATIVE NEGATIVE (NEGATIVE)
[2022-06-15 15:52] LABS: CANNABINOIDS URINE NEGATIVE (NEGATIVE); METHADONE URINE NEGATIVE (NEGATIVE); OPIATES URINE NEGATIVE (NEGATIVE); PHENCYCLIDINE URINE NEGATIVE (NEGATIVE)
[2022-06-15 15:53] LABS: AMPHETAMINES LEVEL URINE NEGATIVE (NEGATIVE); BARBITURATES URINE NEGATIVE (NEGATIVE); BENZODIAZEPINES URINE NEGATIVE (NEGATIVE); COCAINE METABOLITE URINE NEGATIVE (NEGATIVE)
[2022-06-15] MEDS ORDERED: diphenhydrAMINE 50MG CAP PO ONE (19:40)
[2022-06-15] MEDS ORDERED: BUSP10TA PO (22:14)
[2022-06-15] MEDS ORDERED: BUPR150T12 PO (22:14)
[2022-06-15] MEDS ORDERED: HYDR50TA70 PO (22:14)
[2022-06-15] MEDS ORDERED: TRAZ150T90 PO (22:14)
[2022-06-15] MEDS ORDERED: DEPA1TAB PO (22:14)
[2022-06-15] MEDS ORDERED: HOME MED LIST COMPLETE! XX SCH (22:15)
[2022-06-16] MEDS ORDERED: hydrOXYzine 50 MG TAB PO ONE (01:00)
[2022-06-16] MEDS ORDERED: LEVOTHYROXINE 50MCG TABLET (0.05MG) PO SCH (06:00)
[2022-06-16] MEDS ORDERED: hydrOXYzine 50 MG TAB PO PRN (07:15)
[2022-06-16] MEDS ORDERED: DIVALPROEX 125 MG TAB PO SCH (09:00)
[2022-06-16] MEDS ORDERED: busPIRone 10 MG TAB PO SCH (09:00)
[2022-06-16] MEDS ORDERED: buPROPion **XL** TABLET 150MG (WELLBUTRIN XL) PO SCH (09:00)
[2022-06-16] MEDS ORDERED: IBUPROFEN 400MG TAB PO PRN (14:00)
[2022-06-16] MEDS ORDERED: MAALOX 30 ML SUSP *UDC PO PRN (14:00)
[2022-06-16] MEDS ORDERED: MOM 30ML SUSPENSION UDC PO PRN (14:00)
[2022-06-16] MEDS: hydrOXYzine 50 MG TAB PO PRN (16:22)
[2022-06-16] MEDS: ACETAMINOPHEN TAB 650MG DOSE (2X325MG) PO PRN (16:23)
[2022-06-16] MEDS: busPIRone 10 MG TAB PO SCH (20:39)
[2022-06-16] MEDS ORDERED: traZODone 50 MG TAB PO SCH ×2 (21:00)
[2022-06-17] MEDS: LEVOTHYROXINE 50MCG TABLET (0.05MG) PO SCH (06:06)
[2022-06-17 06:32] VITALS: BP 99/55
[2022-06-17] MEDS: DIVALPROEX 125 MG TAB PO SCH (08:49)
[2022-06-17] MEDS: NICOTINE 21MG/24HR 1 EA TRANSDERMAL TD SCH (08:50)
[2022-06-17] MEDS: busPIRone 10 MG TAB PO SCH ×2 (08:50→20:07)
[2022-06-17] MEDS: buPROPion **XL** TABLET 150MG (WELLBUTRIN XL) PO SCH (08:50)
[2022-06-17] MEDS ORDERED: MIRTAZAPINE 7.5MG PER 1/2 TABLET PO PRN ×2 (11:20→12:55)
[2022-06-17] MEDS: hydrOXYzine 50 MG TAB PO PRN (13:40)
[2022-06-17] MEDS: LURASIDONE 20 MG TAB (LATUDA) PO SCH (17:35)
[2022-06-17 17:57] VITALS: BP 106/62
[2022-06-17] MEDS: MIRTAZAPINE 7.5MG PER 1/2 TABLET PO SCH (20:07)
[2022-06-17] MEDS: traZODone 50 MG TAB PO PRN (20:08)
[2022-06-18] MEDS: LEVOTHYROXINE 50MCG TABLET (0.05MG) PO SCH (05:43)
[2022-06-18 06:34] VITALS: BP 107/55
[2022-06-18] MEDS: busPIRone 10 MG TAB PO SCH ×2 (09:14→20:00)
[2022-06-18] MEDS: buPROPion **XL** TABLET 150MG (WELLBUTRIN XL) PO SCH (09:14)
[2022-06-18] MEDS: NICOTINE 21MG/24HR 1 EA TRANSDERMAL TD SCH (09:15)
[2022-06-18] MEDS: DIVALPROEX 125 MG TAB PO SCH (09:15)
[2022-06-18] MEDS: LURASIDONE 20 MG TAB (LATUDA) PO SCH (17:36)
[2022-06-18 17:50] VITALS: BP 112/60
[2022-06-18] MEDS: traZODone 50 MG TAB PO PRN (19:59)
[2022-06-18] MEDS: MIRTAZAPINE 7.5MG PER 1/2 TABLET PO SCH (20:00)
[2022-06-19] MEDS: LEVOTHYROXINE 50MCG TABLET (0.05MG) PO SCH (05:32)
[2022-06-19 06:22] VITALS: BP 101/55
[2022-06-19] MEDS: DIVALPROEX 125 MG TAB PO SCH (08:13)
[2022-06-19] MEDS: buPROPion **XL** TABLET 150MG (WELLBUTRIN XL) PO SCH (08:13)
[2022-06-19] MEDS: NICOTINE 21MG/24HR 1 EA TRANSDERMAL TD SCH (08:13)
[2022-06-19] MEDS: busPIRone 10 MG TAB PO SCH ×2 (08:13→21:25)
[2022-06-19] MEDS: hydrOXYzine 50 MG TAB PO PRN (15:03)
[2022-06-19] MEDS: LURASIDONE 20 MG TAB (LATUDA) PO SCH (17:31)
[2022-06-19 17:56] VITALS: BP 108/64
[2022-06-19] MEDS: MIRTAZAPINE 15 MG TAB PO SCH (21:25)
[2022-06-19] MEDS: traZODone 50 MG TAB PO PRN (21:25)
[2022-06-20] MEDS: LEVOTHYROXINE 50MCG TABLET (0.05MG) PO SCH (05:59)
[2022-06-20 06:43] VITALS: BP 99/55
[2022-06-20] MEDS: DIVALPROEX 125 MG TAB PO SCH (08:19)
[2022-06-20] MEDS: buPROPion **XL** TABLET 150MG (WELLBUTRIN XL) PO SCH (08:19)
[2022-06-20] MEDS: busPIRone 10 MG TAB PO SCH ×3 (08:19→20:10)
[2022-06-20] MEDS: NICOTINE 21MG/24HR 1 EA TRANSDERMAL TD SCH (08:19)
[2022-06-20 17:49] VITALS: BP 118/71
[2022-06-20] MEDS: LURASIDONE 20 MG TAB (LATUDA) PO SCH (18:10)
[2022-06-20] MEDS: traZODone 100 MG TAB PO PRN (20:09)
[2022-06-20] MEDS: MIRTAZAPINE 15 MG TAB PO SCH (20:10)
[2022-06-21] MEDS: LEVOTHYROXINE 50MCG TABLET (0.05MG) PO SCH (05:46)
[2022-06-21 06:31] VITALS: BP 96/52
[2022-06-21 07:54] LABS: VALPROIC ACID (DEPAKOTE) 27.3 UG/ML (50.0-100.0)
[2022-06-21 07:56] LABS: CHOLESTEROL RISK RATIO 3.4 (<5); HDL CHOLESTEROL 44.3 MG/DL (>40); LDL CHOLESTEROL 89.9 MG/DL (<100)
[2022-06-21] MEDS: DIVALPROEX 125 MG TAB PO SCH (08:38)
[2022-06-21] MEDS: buPROPion **XL** TABLET 150MG (WELLBUTRIN XL) PO SCH (08:39)
[2022-06-21] MEDS: busPIRone 10 MG TAB PO SCH ×3 (08:39→20:45)
[2022-06-21] MEDS: NICOTINE 21MG/24HR 1 EA TRANSDERMAL TD SCH (08:39)
[2022-06-21] MEDS: hydrOXYzine 50 MG TAB PO PRN (14:19)
[2022-06-21 16:59] VITALS: BP 107/69
[2022-06-21] MEDS: LURASIDONE 20 MG TAB (LATUDA) PO SCH (18:06)
[2022-06-21] MEDS: traZODone 100 MG TAB PO PRN (20:45)
[2022-06-21] MEDS: MIRTAZAPINE 15 MG TAB PO SCH (20:45)
[2022-06-22] MEDS: LEVOTHYROXINE 50MCG TABLET (0.05MG) PO SCH (06:06)
[2022-06-22 06:50] VITALS: BP 121/62
[2022-06-22] MEDS: NICOTINE 21MG/24HR 1 EA TRANSDERMAL TD SCH (08:45)
[2022-06-22] MEDS: busPIRone 10 MG TAB PO SCH ×3 (08:46→21:30)
[2022-06-22] MEDS: DIVALPROEX 125 MG TAB PO SCH (08:46)
[2022-06-22] MEDS: buPROPion **XL** TABLET 150MG (WELLBUTRIN XL) PO SCH (08:46)
[2022-06-22 16:17] VITALS: BP 98/62
[2022-06-22] MEDS: BETAMETHASONE VAL 0.1% OINT 15 GM TOP SCH (18:00)
[2022-06-22] MEDS: LURASIDONE 20 MG TAB (LATUDA) PO SCH (18:09)
[2022-06-22] MEDS: MIRTAZAPINE 15 MG TAB PO SCH (21:30)
[2022-06-22] MEDS: traZODone 100 MG TAB PO PRN (21:30)
[2022-06-23] MEDS: LEVOTHYROXINE 50MCG TABLET (0.05MG) PO SCH (05:59)
[2022-06-23 06:41] VITALS: BP 100/55
[2022-06-23] MEDS: busPIRone 10 MG TAB PO SCH ×3 (09:20→20:17)
[2022-06-23] MEDS: buPROPion **XL** TABLET 150MG (WELLBUTRIN XL) PO SCH (09:20)
[2022-06-23] MEDS: NICOTINE 21MG/24HR 1 EA TRANSDERMAL TD SCH (09:20)
[2022-06-23] MEDS: DIVALPROEX 125 MG TAB PO SCH (09:20)
[2022-06-23] MEDS: BETAMETHASONE VAL 0.1% OINT 15 GM TOP SCH (09:22)
[2022-06-23] MEDS: hydrOXYzine 50 MG TAB PO PRN (13:29)
[2022-06-23] MEDS: LURASIDONE 20 MG TAB (LATUDA) PO SCH (17:17)
[2022-06-23 18:22] VITALS: BP 130/73
[2022-06-23] MEDS: MIRTAZAPINE 15 MG TAB PO SCH (20:17)
[2022-06-23] MEDS: traZODone 100 MG TAB PO PRN (20:17)
[2022-06-23] MEDS: DIVALPROEX 250MG TAB PO SCH (20:17)
[2022-06-24] MEDS: LEVOTHYROXINE 50MCG TABLET (0.05MG) PO SCH (05:45)
[2022-06-24 06:05] VITALS: BP 105/62
[2022-06-24] MEDS: buPROPion **XL** TABLET 150MG (WELLBUTRIN XL) PO SCH (08:55)
[2022-06-24] MEDS: busPIRone 10 MG TAB PO SCH ×3 (08:55→21:09)
[2022-06-24] MEDS: DIVALPROEX 250MG TAB PO SCH ×2 (08:55→21:09)
[2022-06-24] MEDS: NICOTINE 21MG/24HR 1 EA TRANSDERMAL TD SCH (08:55)
[2022-06-24] MEDS: BETAMETHASONE VAL 0.1% OINT 15 GM TOP SCH (08:55)
[2022-06-24] MEDS: hydrOXYzine 50 MG TAB PO PRN (15:20)
[2022-06-24 16:34] VITALS: BP 112/68
[2022-06-24] MEDS: LURASIDONE 20 MG TAB (LATUDA) PO SCH (17:55)
[2022-06-24] MEDS: MIRTAZAPINE 15 MG TAB PO SCH (21:09)
[2022-06-24] MEDS: traZODone 100 MG TAB PO PRN (21:09)
[2022-06-25] MEDS: LEVOTHYROXINE 50MCG TABLET (0.05MG) PO SCH (06:14)
[2022-06-25 06:55] VITALS: BP 99/56
[2022-06-25] MEDS: NICOTINE 21MG/24HR 1 EA TRANSDERMAL TD SCH (08:43)
[2022-06-25] MEDS: buPROPion **XL** TABLET 150MG (WELLBUTRIN XL) PO SCH (08:45)
[2022-06-25] MEDS: busPIRone 10 MG TAB PO SCH ×3 (08:45→20:25)
[2022-06-25] MEDS: DIVALPROEX 250MG TAB PO SCH ×2 (08:45→20:25)
[2022-06-25] MEDS: BETAMETHASONE VAL 0.1% OINT 15 GM TOP SCH (08:48)
[2022-06-25] MEDS: ACETAMINOPHEN TAB 650MG DOSE (2X325MG) PO PRN (14:16)
[2022-06-25] MEDS: hydrOXYzine 50 MG TAB PO PRN (15:23)
[2022-06-25 16:44] VITALS: BP 100/64
[2022-06-25] MEDS: LURASIDONE 20 MG TAB (LATUDA) PO SCH (18:02)
[2022-06-25] MEDS: MIRTAZAPINE 15 MG TAB PO SCH (20:25)
[2022-06-25] MEDS: traZODone 100 MG TAB PO PRN (20:25)
[2022-06-26] MEDS: LEVOTHYROXINE 50MCG TABLET (0.05MG) PO SCH (06:02)
[2022-06-26 06:44] VITALS: BP 93/50
[2022-06-26] MEDS: BETAMETHASONE VAL 0.1% OINT 15 GM TOP SCH (09:00)
[2022-06-26] MEDS: busPIRone 10 MG TAB PO SCH ×3 (09:03→20:35)
[2022-06-26] MEDS: buPROPion **XL** TABLET 150MG (WELLBUTRIN XL) PO SCH (09:03)
[2022-06-26] MEDS: DIVALPROEX 250MG TAB PO SCH ×2 (09:03→20:36)
[2022-06-26] MEDS: NICOTINE 21MG/24HR 1 EA TRANSDERMAL TD SCH (09:03)
[2022-06-26 16:35] VITALS: BP 123/69
[2022-06-26] MEDS: LURASIDONE 20 MG TAB (LATUDA) PO SCH (18:00)
[2022-06-26] MEDS: MIRTAZAPINE 15 MG TAB PO SCH (20:35)
[2022-06-26] MEDS: traZODone 100 MG TAB PO PRN (20:36)
[2022-06-27 06:00] VITALS: BP 101/59
[2022-06-27] MEDS: LEVOTHYROXINE 50MCG TABLET (0.05MG) PO SCH (06:01)
[2022-06-27] MEDS: NICOTINE 21MG/24HR 1 EA TRANSDERMAL TD SCH (08:46)
[2022-06-27] MEDS: busPIRone 10 MG TAB PO SCH ×3 (08:46→20:59)
[2022-06-27] MEDS: buPROPion **XL** TABLET 150MG (WELLBUTRIN XL) PO SCH (08:46)
[2022-06-27] MEDS: DIVALPROEX 250MG TAB PO SCH ×2 (08:46→20:59)
[2022-06-27] MEDS: BETAMETHASONE VAL 0.1% OINT 15 GM TOP SCH (08:47)
[2022-06-27] MEDS: LURASIDONE 20 MG TAB (LATUDA) PO SCH (18:42)
[2022-06-27 19:28] VITALS: BP 132/63
[2022-06-27] MEDS: MIRTAZAPINE 15 MG TAB PO SCH (20:59)
[2022-06-27] MEDS: traZODone 100 MG TAB PO PRN (20:59)
[2022-06-28] MEDS: LEVOTHYROXINE 50MCG TABLET (0.05MG) PO SCH (05:44)
[2022-06-28 06:05] VITALS: BP 100/52
[2022-06-28] MEDS: DIVALPROEX 250MG TAB PO SCH ×2 (09:06→20:58)
[2022-06-28] MEDS: busPIRone 10 MG TAB PO SCH ×3 (09:06→20:58)
[2022-06-28] MEDS: buPROPion **XL** TABLET 150MG (WELLBUTRIN XL) PO SCH (09:06)
[2022-06-28] MEDS: BETAMETHASONE VAL 0.1% OINT 15 GM TOP SCH (09:07)
[2022-06-28] MEDS: NICOTINE 21MG/24HR 1 EA TRANSDERMAL TD SCH (09:10)
[2022-06-28] MEDS: LURASIDONE 20 MG TAB (LATUDA) PO SCH (17:02)
[2022-06-28] MEDS: hydrOXYzine 50 MG TAB PO PRN (17:02)
[2022-06-28 18:43] VITALS: BP 124/75
[2022-06-28] MEDS: traZODone 100 MG TAB PO PRN (20:58)
[2022-06-28] MEDS: MIRTAZAPINE 15 MG TAB PO SCH (20:58)
[2022-06-29] MEDS: LEVOTHYROXINE 50MCG TABLET (0.05MG) PO SCH (05:29)
[2022-06-29 06:50] VITALS: BP 100/55
[2022-06-29] MEDS: NICOTINE 21MG/24HR 1 EA TRANSDERMAL TD SCH (08:39)
[2022-06-29] MEDS: busPIRone 10 MG TAB PO SCH ×3 (08:39→20:12)
[2022-06-29] MEDS: DIVALPROEX 250MG TAB PO SCH ×2 (08:39→20:12)
[2022-06-29] MEDS: buPROPion **XL** TABLET 150MG (WELLBUTRIN XL) PO SCH (08:39)
[2022-06-29] MEDS: BETAMETHASONE VAL 0.1% OINT 15 GM TOP SCH (08:42)
[2022-06-29] MEDS: hydrOXYzine 50 MG TAB PO PRN (12:23)
[2022-06-29] MEDS: LURASIDONE 20 MG TAB (LATUDA) PO SCH (18:10)
[2022-06-29 19:12] VITALS: BP 117/61
[2022-06-29] MEDS: MIRTAZAPINE 15 MG TAB PO SCH (20:12)
[2022-06-29] MEDS: traZODone 100 MG TAB PO PRN (20:12)
[2022-06-30] MEDS: LEVOTHYROXINE 50MCG TABLET (0.05MG) PO SCH (06:12)
[2022-06-30 06:50] VITALS: BP 99/57
[2022-06-30] MEDS: buPROPion **XL** TABLET 150MG (WELLBUTRIN XL) PO SCH (08:42)
[2022-06-30] MEDS: BETAMETHASONE VAL 0.1% OINT 15 GM TOP SCH (08:43)
[2022-06-30] MEDS: NICOTINE 21MG/24HR 1 EA TRANSDERMAL TD SCH (08:43)
[2022-06-30] MEDS: DIVALPROEX 250MG TAB PO SCH ×2 (08:43→20:12)
[2022-06-30] MEDS: busPIRone 10 MG TAB PO SCH ×3 (08:43→20:12)
[2022-06-30] MEDS: hydrOXYzine 50 MG TAB PO PRN (12:34)
[2022-06-30] MEDS: ACETAMINOPHEN TAB 650MG DOSE (2X325MG) PO PRN (12:35)
[2022-06-30] MEDS: LURASIDONE 20 MG TAB (LATUDA) PO SCH (17:42)
[2022-06-30 19:13] VITALS: BP 115/71
[2022-06-30] MEDS: MIRTAZAPINE 15 MG TAB PO SCH (20:12)
[2022-06-30] MEDS: traZODone 100 MG TAB PO PRN (20:12)
[2022-07-01] MEDS: LEVOTHYROXINE 50MCG TABLET (0.05MG) PO SCH (05:56)
[2022-07-01 07:00] VITALS: BP 100/55
[2022-07-01] MEDS: DIVALPROEX 250MG TAB PO SCH (08:46)
[2022-07-01] MEDS: NICOTINE 21MG/24HR 1 EA TRANSDERMAL TD SCH (08:46)
[2022-07-01] MEDS: buPROPion **XL** TABLET 150MG (WELLBUTRIN XL) PO SCH (08:46)
[2022-07-01] MEDS: busPIRone 10 MG TAB PO SCH (08:46)
[2022-07-01] MEDS: BETAMETHASONE VAL 0.1% OINT 15 GM TOP SCH (08:46)
[2022-07-01] MEDS ORDERED: BETA1OI TOP (09:45)
[2022-07-01] MEDS ORDERED: LEVO50TA5 PO (09:45)
[2022-07-01] MEDS ORDERED: DEPA250T32 PO (09:45)
[2022-07-01] MEDS ORDERED: BUSP10TA PO ×2 (09:45→09:47)
[2022-07-01] MEDS ORDERED: BUPR150T12 PO (09:45)
[2022-07-01] MEDS ORDERED: TRAZ-257 PO (09:45)
[2022-07-01] MEDS ORDERED: MIRT-10 PO (09:45)
[2022-07-01] MEDS ORDERED: LATU20TA PO (09:45)
[2022-07-01] MEDS ORDERED: HYDR50TA70 PO (09:45)
[2022-07-01] MEDS: hydrOXYzine 50 MG TAB PO PRN (11:20)
[2022-07-05] MEDS ORDERED: LATU40TA2 PO (08:15)
== END 2022-07-01 11:50 | disposition home or self-care (01) | DRG 753 ==
LOC: EDBD 13:08 → M ED 13:08 → M ED INP 06-16 13:59 → M PSY 06-16 15:27
PROVIDERS: ADMIT Student in an Organized Health Care Education/Training Program; ATTEND Psychiatry & Neurology Psychiatry
DX: F31.30 Bipolar disorder, current episode depressed, mild or moderate severity, unspecified (principal); R45.851 Suicidal ideations; Z59.01 Sheltered homelessness; E03.9 Hypothyroidism, unspecified; F17.210 Nicotine dependence, cigarettes, uncomplicated; F12.90 Cannabis use, unspecified, uncomplicated; F41.1 Generalized anxiety disorder; Z79.890 Hormone replacement therapy; Z79.899 Other long term (current) drug therapy; Z88.2 Allergy status to sulfonamides; Z88.8 Allergy status to other drugs, medicaments and biological substances; Z20.822 Contact with and (suspected) exposure to COVID-19; Z91.199 Patient's noncompliance with other medical treatment and regimen due to unspecified reason; Z91.51 Personal history of suicidal behavior; Z62.811 Personal history of psychological abuse in childhood; Z63.0 Problems in relationship with spouse or partner

== ENCOUNTER → 2022-08-29 | Outpatient (CLI) | payer MEDICAID, OTHER ==
[~2022-08-29] MED LIST changes: +BETA1OI TOP; +BUSP10TA PO; +DEPA250T32 PO; +LATU20TA PO; +LATU40TA2 PO; +MIRT-10 PO; +TRAZ150T90 PO
== END ==
LOC: M WUC 14:16
PROVIDERS: ATTEND Nurse Practitioner Family
DX: M54.50 Low back pain, unspecified (principal)

== ENCOUNTER → 2022-10-11 | Outpatient (REF) | payer MEDICAID, OTHER ==
[2022-10-11 12:55] LABS: ALBUMIN 3.8 G/DL (3.2-5.2); ALKALINE PHOSPHATASE 42 U/L (46-116); ALT/SGPT 14 U/L (7.0-40); AST/SGOT 16 U/L (<34); BILIRUBIN,TOTAL 0.3 MG/DL (0.3-1.2); BLOOD UREA NITROGEN 7 MG/DL (9-23); CARBON DIOXIDE LEVEL 25 MMOL/L (20-31); CHLORIDE LEVEL 107 MMOL/L (98-107); CHOLESTEROL LEVEL 151 MG/DL (<200); CHOLESTEROL RISK RATIO 3.06 (<5); CREATININE FOR GFR 0.74 MG/DL (0.55-1.30); GLOMERULAR FILTRATION RATE > 60.0 (>60); GLUCOSE, FASTING 91 MG/DL (60-100); HDL CHOLESTEROL 49.2 MG/DL (>40); LDL CHOLESTEROL 89.8 MG/DL (<100); NON-HDL-C 101.8 MG/DL; POTASSIUM SERUM 4.2 MMOL/L (3.5-5.1); SODIUM LEVEL 134 MMOL/L (136-145); TOTAL PROTEIN 6.7 G/DL (5.7-8.2); TRIGLYCERIDES LEVEL 60 MG/DL (<150)
[2022-10-11 12:56] LABS: THYROID STIMULATING HORMONE 1.585 uIU/ML (0.55-4.78)
[2022-10-11 12:57] LABS: TOTAL 25(OH) VITAMIN D 26.5 NG/ML (20.0-100.0)
[2022-10-11 12:58] LABS: BASO % 0.4 % (0.0-1.0); EOS # 0.3 10^3/uL (0.0-0.5); EOS % 3.6 % (0.0-3.0); HEMATOCRIT 42.3 % (36.0-47.0); HEMOGLOBIN 13.7 g/dl (12.0-15.5); LYMPH # 2.2 10^3/uL (1.5-5.0); LYMPH % 27.3 % (24.0-44.0); MEAN CORPUSCULAR HEMOGLOBIN 30.2 pg (27.0-33.0); MEAN CORPUSCULAR HGB CONC 32.4 g/dl (32.0-36.5); MEAN CORPUSCULAR VOLUME 93.2 fl (80.0-96.0); MONO # 0.6 10^3/uL (0.0-0.8); MONO % 7.2 % (2.0-8.0); NEUTROPHILS # 4.8 10^3/uL (1.5-8.5); NEUTROPHILS % 61.2 % (36.0-66.0); PLATELET COUNT, AUTOMATED 312 10^3/uL (150-450); RED BLOOD COUNT 4.54 10^6/uL (4.00-5.40); WHITE BLOOD COUNT 7.9 10^3/uL (4.0-10.0)
[2022-10-11 13:10] LABS: HEMOGLOBIN A1c 4.8 % (4.0-6.0)
== END ==
LOC: M LAB REF 12:20
PROVIDERS: ATTEND Nurse Practitioner Family
DX: E03.9 Hypothyroidism, unspecified (principal); Z13.228 Encounter for screening for other metabolic disorders

== ENCOUNTER → 2022-12-12 | Outpatient (REF) | payer OTHER ==
[2022-12-12 21:41] LABS: APPEARANCE, URINE HAZY (CLEAR); BACTERIA, URINE AUTO NEGATIVE (NEGATIVE); BILIRUBIN, URINE AUTO NEGATIVE (NEGATIVE); BLOOD, URINE BLOOD NEGATIVE (NEGATIVE); COLOR, URINE YELLOW (YELLOW); GLUCOSE, URINE (UA) AUTO NEGATIVE (NEGATIVE); KETONE, URINE AUTO NEGATIVE (NEGATIVE); LEUKOCYTE ESTERASE, URINE AUTO TRACE (NEGATIVE); MUCUS, URINE SMALL (NEGATIVE); NITRITE, URINE AUTO NEGATIVE (NEGATIVE); PROTEIN, URINE AUTO NEGATIVE (NEGATIVE); RBC, URINE AUTO 1 /HPF (0-3); SPECIFIC GRAVITY URINE AUTO 1.019 (1.002-1.035); SQUAMOUS EPITHELIAL CELL UR AU 3 /HPF (0-6); UROBILINOGEN, URINE AUTO 0.2 mg/dL (0.0-2.0); WBC, URINE AUTO 2 /HPF (0-3)
== END ==
LOC: M LAB REF 21:11
PROVIDERS: ATTEND Physician Assistant Medical
DX: N39.0 Urinary tract infection, site not specified (principal)

== ENCOUNTER → 2023-01-20 | Outpatient (REF) | payer OTHER | LOC: M LAB REF 16:22 | PROVIDERS: ATTEND Nurse Practitioner Family | DX: E03.9 Hypothyroidism, unspecified (principal) ==

== ENCOUNTER → 2023-02-23 | Outpatient (REF) | payer OTHER | LOC: M SFHCWAGY 13:15 | PROVIDERS: ATTEND Nurse Practitioner Family | DX: Z12.4 Encounter for screening for malignant neoplasm of cervix (principal) ==

== ENCOUNTER → 2023-08-11 | Outpatient (CLI) | payer OTHER ==
[2023-08-11 18:54] LABS: VALPROIC ACID (DEPAKOTE) 52.2 UG/ML (50.0-100.0)
[2023-08-11 18:56] LABS: ALKALINE PHOSPHATASE 39 U/L (46-116); ALT/SGPT 11 U/L (7.0-40); AST/SGOT 10 U/L (<34); BILIRUBIN,TOTAL 0.3 MG/DL (0.3-1.2); BLOOD UREA NITROGEN 6 MG/DL (9-23); CALCIUM LEVEL 9.1 MG/DL (8.5-10.1); CARBON DIOXIDE LEVEL 30 MMOL/L (20-31); CHLORIDE LEVEL 102 MMOL/L (98-107); GLOMERULAR FILTRATION RATE > 60.0 (>60); GLUCOSE, FASTING 75 MG/DL (60-100); POTASSIUM SERUM 3.9 MMOL/L (3.5-5.1); SODIUM LEVEL 137 MMOL/L (136-145); TOTAL PROTEIN 6.9 G/DL (5.7-8.2)
== END ==
LOC: M WUC 13:30
PROVIDERS: ATTEND Psychiatry & Neurology Psychiatry
DX: Z51.81 Encounter for therapeutic drug level monitoring (principal)

== ENCOUNTER → 2023-10-18 | Outpatient (REF) | payer OTHER ==
[2023-10-18 18:22] LABS: BASO % 0.5 % (0.0-1.0); EOS # 0.4 10^3/uL (0.0-0.5); EOS % 4.7 % (0.0-3.0); HEMATOCRIT 43.1 % (36.0-47.0); HEMOGLOBIN 14.1 g/dl (12.0-15.5); LYMPH # 3.1 10^3/uL (1.5-5.0); MEAN CORPUSCULAR HGB CONC 32.7 g/dl (32.0-36.5); MEAN CORPUSCULAR VOLUME 91.7 fl (80.0-96.0); MONO # 0.9 10^3/uL (0.0-0.8); MONO % 9.6 % (2.0-8.0); NEUTROPHILS # 4.4 10^3/uL (1.5-8.5); PLATELET COUNT, AUTOMATED 314 10^3/uL (150-450); WHITE BLOOD COUNT 8.9 10^3/uL (4.0-10.0)
[2023-10-18 18:44] LABS: ALKALINE PHOSPHATASE 47 U/L (46-116); ALT/SGPT 10 U/L (7.0-40); AST/SGOT 14 U/L (<34); BILIRUBIN,TOTAL 0.4 MG/DL (0.3-1.2); BLOOD UREA NITROGEN 5 MG/DL (9-23); CALCIUM LEVEL 9.4 MG/DL (8.5-10.1); CARBON DIOXIDE LEVEL 28 MMOL/L (20-31); CHLORIDE LEVEL 102 MMOL/L (98-107); CHOLESTEROL LEVEL 178 MG/DL (<200); CHOLESTEROL RISK RATIO 2.73 (<5); GLOMERULAR FILTRATION RATE > 60.0 (>60); GLUCOSE, FASTING 64 MG/DL (60-100); HDL CHOLESTEROL 65.1 MG/DL (>40); LDL CHOLESTEROL 101.9 MG/DL (<100); MAGNESIUM LEVEL 1.9 MG/DL (1.8-2.4); NON-HDL-C 112.9 MG/DL; POTASSIUM SERUM 4.5 MMOL/L (3.5-5.1); SODIUM LEVEL 135 MMOL/L (136-145); TOTAL PROTEIN 7.3 G/DL (5.7-8.2); TRIGLYCERIDES LEVEL 55 MG/DL (<150)
[2023-10-18 18:45] LABS: THYROID STIMULATING HORMONE 1.614 uIU/ML (0.55-4.78); TOTAL 25(OH) VITAMIN D 22.2 NG/ML (20.0-100.0)
[2023-10-18 19:09] LABS: HEMOGLOBIN A1c 4.9 % (4.0-6.0)
== END ==
LOC: M LAB REF 16:40
PROVIDERS: ATTEND Nurse Practitioner Family
DX: E66.3 Overweight (principal); E55.9 Vitamin D deficiency, unspecified

== ENCOUNTER → 2024-07-08 | Outpatient (REF) | payer OTHER ==
[~2024-07-08] MED LIST changes: +ONDA-282 PO; -ONDA4TAB6 PO
== END ==
LOC: M LAB REF 13:05
PROVIDERS: ATTEND Nurse Practitioner Family
DX: E03.9 Hypothyroidism, unspecified (principal)

== ENCOUNTER → 2024-07-31 | Outpatient (REF) | payer OTHER ==
[2024-07-31 14:07] LABS: BASO % 0.4 % (0.0-1.0); EOS # 0.6 10^3/uL (0.0-0.5); EOS % 8.4 % (0.0-3.0); HEMATOCRIT 38.8 % (36.0-47.0); HEMOGLOBIN 12.7 g/dl (12.0-15.5); LYMPH # 2.1 10^3/uL (1.5-5.0); LYMPH % 27.4 % (24.0-44.0); MEAN CORPUSCULAR HGB CONC 32.7 g/dl (32.0-36.5); MEAN CORPUSCULAR VOLUME 94.6 fl (80.0-96.0); MONO # 0.7 10^3/uL (0.0-0.8); MONO % 9.1 % (2.0-8.0); NEUTROPHILS # 4.1 10^3/uL (1.5-8.5); NEUTROPHILS % 54.4 % (36.0-66.0); PLATELET COUNT, AUTOMATED 281 10^3/uL (150-450); WHITE BLOOD COUNT 7.5 10^3/uL (4.0-10.0)
[2024-07-31 14:13] LABS: TOTAL IRON BINDING CAPACITY 313 UG/DL (250-425)
[2024-07-31 14:14] LABS: ALBUMIN 3.5 G/DL (3.2-5.2); ALKALINE PHOSPHATASE 41 U/L (35-104); ALT/SGPT 13 U/L (7.0-40); AST/SGOT 12 U/L (<34); BILIRUBIN,TOTAL 0.3 MG/DL (0.3-1.2); BLOOD UREA NITROGEN 6 MG/DL (9-23); CALCIUM LEVEL 8.9 MG/DL (8.5-10.1); CARBON DIOXIDE LEVEL 28 MMOL/L (20-31); CHLORIDE LEVEL 104 MMOL/L (98-107); CHOLESTEROL LEVEL 156 MG/DL (<200); CHOLESTEROL RISK RATIO 2.64 (<5); CREATININE FOR GFR 0.57 MG/DL (0.55-1.30); GLOMERULAR FILTRATION RATE > 60.0 (>60); GLUCOSE, FASTING 92 MG/DL (60-100); HDL CHOLESTEROL 58.9 MG/DL (>40); IRON (FE) 80 UG/DL (50-170); LDL CHOLESTEROL 80.7 MG/DL (<100); MAGNESIUM LEVEL 1.8 MG/DL (1.8-2.4); NON-HDL-C 97.1 MG/DL; PERCENT SATURATION 25.6 % (13.2-45.0); POTASSIUM SERUM 4.5 MMOL/L (3.5-5.1); SODIUM LEVEL 137 MMOL/L (136-145); TOTAL PROTEIN 6.7 G/DL (5.7-8.2); TRIGLYCERIDES LEVEL 82 MG/DL (<150)
[2024-07-31 14:15] LABS: FERRITIN 36.4 NG/ML (7.3-270.7); FREE T4 1.19 NG/DL (0.89-1.76); THYROID STIMULATING HORMONE 2.225 uIU/ML (0.55-4.78)
[2024-07-31 14:16] LABS: VITAMIN B12 LEVEL 607 PG/ML (211-911)
[2024-07-31 14:18] LABS: HEMOGLOBIN A1c 4.8 % (4.0-6.0)
[2024-07-31 14:19] LABS: FOLATE 5.3 NG/ML (>5.4)
== END ==
LOC: M LAB REF 13:04
PROVIDERS: ATTEND Nurse Practitioner Family
DX: E03.9 Hypothyroidism, unspecified (principal); R63.4 Abnormal weight loss

== ENCOUNTER → 2024-10-11 | Outpatient (CLI) | payer OTHER | LOC: M RAD 10:51 | PROVIDERS: ATTEND Nurse Practitioner Family | DX: Z13.6 Encounter for screening for cardiovascular disorders (principal); Z82.49 Family history of ischemic heart disease and other diseases of the circulatory system ==

== ENCOUNTER → 2025-04-21 | Outpatient (CLI) | payer OTHER ==
[~2025-04-21] MED LIST changes: -DEPA250T32 PO; +DIVA-65 PO
[2025-04-21 18:59] LABS: BASO # 0.1 10^3/uL (0.0-0.2); BASO % 0.6 % (0.0-1.0); EOS # 0.2 10^3/uL (0.0-0.5); EOS % 1.8 % (0.0-3.0); LYMPH # 3.4 10^3/uL (1.5-5.0); LYMPH % 35.6 % (24.0-44.0); MONO # 0.8 10^3/uL (0.0-0.8); MONO % 8.7 % (2.0-8.0); NEUTROPHILS # 5.1 10^3/uL (1.5-8.5); NEUTROPHILS % 53.1 % (36.0-66.0); PLATELET COUNT, AUTOMATED 322 10^3/uL (150-450)
[2025-04-21 19:13] LABS: VALPROIC ACID (DEPAKOTE) 38.8 UG/ML (50.0-100.0)
[2025-04-21 19:18] LABS: ALT/SGPT 12 U/L (7.0-40); AST/SGOT 17 U/L (<34); CALCIUM LEVEL 9.0 MG/DL (8.5-10.1); CARBON DIOXIDE LEVEL 29 MMOL/L (20-31); CHLORIDE LEVEL 103 MMOL/L (98-107); CREATININE FOR GFR 0.67 MG/DL (0.55-1.30); GLOMERULAR FILTRATION RATE > 90.0 (>60); POTASSIUM SERUM 4.1 MMOL/L (3.5-5.1); SODIUM LEVEL 141 MMOL/L (136-145)
== END ==
LOC: M PLALAB 16:10
PROVIDERS: ATTEND Psychiatry & Neurology Psychiatry
DX: F41.1 Generalized anxiety disorder (principal)